=== PATIENT | male | born 1990 | race Caucasian/White ===

== ENCOUNTER 2020-07-22 16:13 | Emergency (ER) | payer SELFPAY ==
[2020-07-22] MEDS ORDERED: Metoclopramide 10 MG/2 ML SDV IVPUSH ONE (17:29)
[2020-07-22] MEDS ORDERED: Sodium Chloride 0.9% 1,000 ML IV ONE ×2 (17:29→21:21)
[2020-07-22] MEDS ORDERED: Sodium Chloride 0.9% 10 ML Syringe FLUSH PRN ×2 (17:29)
[2020-07-22] MEDS ORDERED: LORazepam 2 MG/ML SDV IVPUSH ONE ×2 (17:29→20:46)
--- NOTE | 2020-07-22 17:38 | EDM.PDOC ---
ED HPI GENERAL MEDICAL PROBLEM - General Chief Complaint: Drug or Alcohol Abuse Stated Complaint: ALCOHOL AND SUBOXONE WITHDRAWAL WITH VOMITING Time Seen by Provider: 07/22/20 17:20 Source of Information: Reports: Patient, RN Notes Reviewed History Limitations: Reports: No Limitations - History of Present Illness INITIAL COMMENTS - FREE TEXT/NARRATIVE: Patient is a 29-year-old male who presents to the ED for evaluation of his alcohol withdrawal and Suboxone withdrawal. The patient notes that he used to be homeless, and transient, but is currently living with his brother in [place]. Patient states that he is withdrawing from alcohol, his last intake was around 5 or 6 PM last night, he states that he started vomiting this morning and tried to drink alcohol to quell the withdrawal symptoms, but states he just keeps vomiting this back up. He has enjoyed periods of sobriety, and decided this morning that he wanted to quit drinking alcohol. He also states that he has been on Suboxone x 1 month, and is currently trying to wean himself off of this as he does not have a provider to prescribe this in the area. He has been on and off Suboxone in the past. 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 He states he is startling easily at this time. He has a recent history of methamphetamine use and marijuana use. Patient states he has chills but no fever. He is having abdomen pain, vomiting and nausea, states that his throat hurts due to the vomiting, and he has been having the dry heaving as well along with abdomen cramps. He is having some [id number] sensations in his bilateral arms and legs. He notes that he does have a history of hep C, and has not been treated as he moved before it could get treated. Abdomen Pain Score (Numeric/FACES): 8 - Related Data Allergies Allergy/AdvReac Type Severity Reaction Status Date / Time No Known Allergies Allergy Verified 07/22/20 16:34 Home Meds: Home Meds Buprenorphine HCl/Naloxone HCl [Suboxone 4 mg-1 mg Sl Film] 8 mg PO DAILY 07/22/20 [History] Folic Acid 1 mg PO DAILY 07/22/20 [History] QUEtiapine [SEROquel] 50 mg PO DAILY 07/22/20 [History] QUEtiapine [SEROquel] 200 mg PO BEDTIME 07/22/20 [History] Past Medical History Psychiatric History: Reports: Addiction, Anxiety, Dementia, Hallucinations - Infectious Disease History Infectious Disease History: Reports: Hepatitis C Social & Family History - Tobacco Use Tobacco Use Status *Q: Current Every Day Tobacco User Years of Tobacco use: 15 Packs/Tins Daily: 0.5 - Caffeine Use Caffeine Use: Reports: None - Alcohol Use Alcohol Use History: Yes Days Per Week of Alcohol Use: 7 Days Per Week of Alcohol Use Comment: fifth to a 1/2 gallon of whiskey daily Date of Last Drink: 07/21/20 Time of Last Drink: 17:30 Alcohol Use in Last Twelve Months: Yes Alcohol Use Frequency: Daily - Recreational Drug Use Recreational Drug Use: Yes Drug Use in Last 12 Months: Yes Recreational Drug Type: Reports: Heroin, Marijuana/Hashish, Methamphetamine Recreational Drug Route: Reports: Intravenous (heroin) ED ROS GENERAL - Review of Systems Review Of Systems: Comprehensive ROS is negative, except as noted in HPI. ED EXAM, GENERAL - Physical Exam Exam: See Below Exam Limited By: No Limitations General Appearance: Alert, WD/WN, No Apparent Distress, Anxious (pt does seem to startle easy but answers questions calmly and appropriately) Eye Exam: Bilateral Eye: EOMI, Normal Inspection, PERRL Throat/Mouth: Normal Inspection, Normal Lips, Normal Teeth, Normal Gums, Normal Oropharynx, Normal Voice, No Airway Compromise Head: Atraumatic, Normocephalic Neck: Normal Inspection Respiratory/Chest: No Respiratory Distress, Lungs Clear, Normal Breath Sounds, No Accessory Muscle Use, Chest Non-Tender Cardiovascular: Normal Peripheral Pulses, Regular Rate, Rhythm, No Murmur Peripheral Pulses: 2+: Radial (L), Radial (R) GI/Abdominal: Normal Bowel Sounds, Soft, No Distention, No Mass, Tender (epigastirum mainly) Extremities: Normal Inspection, Normal Capillary Refill Neurological: Alert, Oriented, Normal Cognition, No Motor/Sensory Deficits Psychiatric: Normal Affect, Normal Mood, Anxious (slightly anxious and startle easy) Skin Exam: Warm, Dry, Intact, Normal Color, No Rash Course - Vital Signs Last Recorded V/S: Last Vital Signs Temp 97.4 F 07/22/20 16:32 Pulse 98 07/22/20 16:32 Resp 20 07/22/20 16:32 BP 125/78 07/22/20 16:32 Pulse Ox 95 07/22/20 16:32 - Orders/Labs/Meds Orders: Active Orders 24 hr Category Date Time Status Peripheral IV Care [RC] . DIRECTED Care 07/22/20 17:30 Ordered Peripheral IV Care [RC] . DIRECTED Care 07/22/20 17:30 Ordered Sodium Chloride 0.9% [Normal Saline] 1,000 ml Med 07/22/20 21:21 Ordered IV ONETIME Sodium Chloride 0.9% [Saline Flush] Med 07/22/20 17:29 Active 10 ml FLUSH ASDIRECTED PRN Sodium Chloride 0.9% [Saline Flush] Med 07/22/20 17:29 Active 10 ml FLUSH ASDIRECTED PRN Peripheral IV Insertion Adult [OM.PC] Stat Oth 07/22/20 17:30 Ordered Medication Orders Sodium Chloride (Normal Saline) 1,000 mls @ 100 mls/hr IV ONETIME ONE Stop: 07/23/20 07:20 Last Admin: 07/22/20 21:56 Dose: 100 mls/hr Documented by: JAMISON Sodium Chloride (Saline Flush) 10 ml FLUSH ASDIRECTED PRN PRN Reason: Keep Vein Open Last Admin: 07/22/20 18:10 Dose: 10 ml Documented by: GRACY Sodium Chloride (Saline Flush) 10 ml FLUSH ASDIRECTED PRN PRN Reason: Keep Vein Open Last Admin: 07/22/20 19:27 Dose: 10 ml Documented by: [email or web address] Labs: Laboratory Tests 07/22/20 07/22/20 07/22/20 Range/Units 18:10 18:10 18:10 WBC 10.10 H (4.23-9.07) K/mm3 RBC 4.97 (4.63-6.08) M/mm3 Hgb 14.9 (13.7-17.5) gm/dl Hct 43.9 (40.1-51.0) % MCV 88.3 (79.0-92.2) fl MCH 30.0 (25.7-32.2) pg MCHC 33.9 (32.2-35.5) g/dl RDW Std Deviation 42.7 (35.1-43.9) fL Plt Count 469 H (163-337) K/mm3 MPV 9.4 (9.4-12.3) fl Neut % (Auto) 60.7 (34.0-67.9) % Lymph % (Auto) 28.8 (21.8-53.1) % [place] % (Auto) 9.3 (5.3-12.2) % Eos % (Auto) 0.3 L (0.8-7.0) Baso % (Auto) 0.4 (0.1-1.2) % Neut # (Auto) 6.13 H (1.78-5.38) K/mm3 Lymph # (Auto) 2.91 (1.32-3.57) K/mm3 [place] # (Auto) 0.94 H (0.30-0.82) K/mm3 Eos # (Auto) 0.03 L (0.04-0.54) K/mm3 Baso # (Auto) 0.04 (0.01-0.08) K/mm3 PT 11.4 (9.7-11.7) SECONDS INR 1.07 Sodium 136 (136-145) mEq/L Potassium 4.0 (3.5-5.1) mEq/L Chloride 97 L (98-107) mEq/L Carbon Dioxide 25 (21-32) mEq/L Anion Gap 18.0 H (5-15) BUN 15 (7-18) mg/dL Creatinine 1.1 (0.7-1.3) mg/dL Est Cr Clr Drug Dosing 110.72 mL/min Estimated GFR (MDRD) > 60 (>60) mL/min BUN/Creatinine Ratio 13.6 L (14-18) Glucose 84 (74-106) mg/dL Calcium 9.3 (8.5-10.1) mg/dL Magnesium 1.7 L (1.8-2.4) mg/dl Total Bilirubin 0.7 (0.2-1.0) mg/dL AST 37 (15-37) U/L ALT 41 (16-63) U/L Alkaline Phosphatase 84 (46-116) U/L Total Protein 8.5 H (6.4-8.2) g/dl Albumin 3.9 (3.4-5.0) g/dl Globulin 4.6 gm/dL Albumin/Globulin Ratio 0.9 L (1-2) Lipase 47 L (73-393) U/L Ethyl Alcohol 0.00 (0.00) gm% SARS-CoV-2 RNA (LISA) (NEGATIVE) 07/22/20 Range/Units 21:08 WBC (4.23-9.07) K/mm3 RBC (4.63-6.08) M/mm3 Hgb (13.7-17.5) gm/dl Hct (40.1-51.0) % MCV (79.0-92.2) fl MCH (25.7-32.2) pg MCHC (32.2-35.5) g/dl RDW Std Deviation (35.1-43.9) fL Plt Count (163-337) K/mm3 MPV (9.4-12.3) fl Neut % (Auto) (34.0-67.9) % Lymph % (Auto) (21.8-53.1) % [place] % (Auto) (5.3-12.2) % Eos % (Auto) (0.8-7.0) Baso % (Auto) (0.1-1.2) % Neut # (Auto) (1.78-5.38) K/mm3 Lymph # (Auto) (1.32-3.57) K/mm3 [place] # (Auto) (0.30-0.82) K/mm3 Eos # (Auto) (0.04-0.54) K/mm3 Baso # (Auto) (0.01-0.08) K/mm3 PT (9.7-11.7) SECONDS INR Sodium (136-145) mEq/L Potassium (3.5-5.1) mEq/L Chloride (98-107) mEq/L Carbon Dioxide (21-32) mEq/L Anion Gap (5-15) BUN (7-18) mg/dL Creatinine (0.7-1.3) mg/dL Est Cr Clr Drug Dosing mL/min Estimated GFR (MDRD) (>60) mL/min BUN/Creatinine Ratio (14-18) Glucose (74-106) mg/dL Calcium (8.5-10.1) mg/dL Magnesium (1.8-2.4) mg/dl Total Bilirubin (0.2-1.0) mg/dL AST (15-37) U/L ALT (16-63) U/L Alkaline Phosphatase (46-116) U/L Total Protein (6.4-8.2) g/dl Albumin (3.4-5.0) g/dl Globulin gm/dL Albumin/Globulin Ratio (1-2) Lipase (73-393) U/L Ethyl Alcohol (0.00) gm% SARS-CoV-2 RNA (LISA) Negative (NEGATIVE) Meds: Medications Generic Name Dose Route Start Last Admin Trade Name Freq PRN Reason Stop Dose Admin Sodium Chloride 1,000 mls @ 100 mls/hr 07/22/20 21:21 07/22/20 21:56 Normal Saline IV 07/23/20 07:20 100 mls/hr ONETIME ONE Administration Sodium Chloride 10 ml 07/22/20 17:29 07/22/20 18:10 Saline Flush FLUSH 10 ml ASDIRECTED PRN Administration Keep Vein Open Sodium Chloride 10 ml 07/22/20 17:29 07/22/20 19:27 Saline Flush FLUSH 10 ml ASDIRECTED PRN Administration Keep Vein Open Discontinued Medications Generic Name Dose Route Start Last Admin Trade Name Freq PRN Reason Stop Dose Admin Al Hydroxide/Mg Hydroxide 30 0 ml 07/22/20 18:18 07/22/20 18:27 ml/ Lidocaine HCl 15 ml PO 07/22/20 18:19 45 ml ONETIME ONE Administration Sodium Chloride 1,000 mls @ 999 mls/hr 07/22/20 17:29 07/22/20 18:15 Normal Saline IV 07/22/20 18:29 999 mls/hr ONETIME ONE Administration Ketorolac Tromethamine 30 mg 07/22/20 22:52 Toradol IVPUSH 07/22/20 22:53 ONETIME ONE Lorazepam 1 mg 07/22/20 17:29 07/22/20 18:11 Ativan IVPUSH 07/22/20 17:30 1 mg ONETIME ONE Administration Lorazepam 1 mg 07/22/20 20:46 07/22/20 21:12 Ativan IVPUSH 07/22/20 20:47 1 mg ONETIME ONE Administration Metoclopramide HCl 10 mg 07/22/20 17:29 07/22/20 18:13 Reglan IVPUSH 07/22/20 17:30 10 mg ONETIME ONE Administration Ondansetron HCl 4 mg 07/22/20 22:51 Zofran IVPUSH 07/22/20 22:52 ONETIME ONE - Re-Assessments/Exams Free Text/Narrative Re-Assessment/Exam: 07/22/20 17:39 Patient presents to the ED for evaluation of his withdrawal symptoms. Have ordered basic labs for evaluation, some IV fluids and medications. The patient states his ultimate goal is to get symptomatic relief, and try to detox at home by himself. This would be a guarded consideration due to him stating he had detox seizures in the past. I do believe that he would benefit from a more supervised detox at this time. 07/22/20 18:55 I did call [facility] for possible placement in [facility] bed, and none are available. Patient's labs all seem to be within normal limits at this time, lipase is not elevated. Blood alcohol is 0.00 07/22/20 20:24 I did re-interview the patient with Dr. Contreras in the room, the patient does have a history of Suboxone use x1 month, he was prescribed this in [place], he has a history of IV heroin use, he states his last use was roughly 1 year ago. He also stopped attending 1 year ago. He has a history of multiple inpatient detox programs, his last one being in October 2018 that lasted about 30 days. Notes that he does drink about 1/5 to half gallon of whiskey daily, and his last intake of this amount of alcohol was yesterday, but he ceased use at [address] Contreras does believe he is at mildly elevated risk for detox symptoms, but is confident as his age is under 35, and he is not showing major detox related symptoms at this visit, that he will likely do okay at home with a few tablets of Ativan and some Zofran and close follow-up with [facility] on Friday. I did talk with Dr. Nunez our hospitalist, and he states that he does not have an ICU bed at this time to admit the patient for alcohol detox. 07/22/20 20:47 I was in contact with [facility] in [place], and Dr. Pickering tentatively accept the patient for transfer for alcohol detox, pending a negative COVID swab. I have ordered the COVID swab to be done at this time. 07/22/20 22:53 The patient's COVID test has come back negative. The patient was having a headache, and some more nausea, I did order 4 mg Zofran, 30 mg Toradol, and we will dispatched ambulance for transfer to [facility] Departure - Departure Time of Disposition: 22:05 Disposition: DC/Tfer to Acute Hospital 02 Condition: Good Clinical Impression: Alcohol withdrawal syndrome Qualifiers: Complication of substance-induced condition: with perceptual disturbance Qualif ied Code(s): F10.232 - Alcohol dependence with withdrawal with perceptual disturbance - Discharge Information *PRESCRIPTION DRUG MONITORING PROGRAM REVIEWED*: No *COPY OF PRESCRIPTION DRUG MONITORING REPORT IN PATIENT SUMMER: No Referrals: PCP,None [Primary Care Provider] - Forms: ED Department Discharge Sepsis Event Note (ED) - Evaluation Sepsis Screening Result: No Definite Risk - Focused Exam Vital Signs: Vital Signs Temp Pulse Resp BP Pulse Ox 07/22/20 16:32 97.4 F 98 20 125/78 95 - My Orders Last 24 Hours: My Active Orders 07/22/20 17:29 Sodium Chloride 0.9% [Saline Flush] 10 ml FLUSH ASDIRECTED PRN Sodium Chloride 0.9% [Saline Flush] 10 ml FLUSH ASDIRECTED PRN 07/22/20 17:30 Peripheral IV Care [RC] . DIRECTED Peripheral IV Care [RC] . DIRECTED Peripheral IV Insertion Adult [OM.PC] Stat 07/22/20 21:21 Sodium Chloride 0.9% [Normal Saline] 1,000 ml IV ONETIME - Assessment/Plan Last 24 Hours: My Active Orders 07/22/20 17:29 Sodium Chloride 0.9% [Saline Flush] 10 ml FLUSH ASDIRECTED PRN Sodium Chloride 0.9% [Saline Flush] 10 ml FLUSH ASDIRECTED PRN 07/22/20 17:30 Peripheral IV Care [RC] . DIRECTED Peripheral IV Care [RC] . DIRECTED Peripheral IV Insertion Adult [OM.PC] Stat 07/22/20 21:21 Sodium Chloride 0.9% [Normal Saline] 1,000 ml IV ONETIME
[2020-07-22] MEDS ORDERED: Alum Hydrox/Mag Hydrox/Simeth 30 ML, Lidocaine 2% 15 ML PO ONE ×2 (18:18)
[2020-07-22] MEDS ORDERED: Ondansetron 4 MG/2 ML SDV IVPUSH ONE (22:51)
[2020-07-22] MEDS ORDERED: Ketorolac 30 MG/ML SDV IVPUSH ONE (22:52)
[2020-07-22] MEDS ORDERED: LORazepam 2 MG/ML SDV IVPUSH STA (23:15)
== END 2020-07-22 23:27 ==
LOC: JD.ED 16:13
DX: F10.232 Alcohol dependence with withdrawal with perceptual disturbance (principal); F41.9 Anxiety disorder, unspecified; F17.210 Nicotine dependence, cigarettes, uncomplicated; Z20.828 Contact with and (suspected) exposure to other viral communicable diseases
CPT/HCPCS: 36415; 80053; 80307; 83690; 83735; 85025; 85610; 87635; 96374; 96375; 96376; 99285; A9270; J1885; J2060; J2405; J2765; J7030; U0002

== ENCOUNTER 2021-01-10 19:19 | Emergency (ER) | payer MEDICAID, OTHER ==
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
[2021-01-11] MEDS ORDERED: Acetaminophen/HYDROcodone 325-5 MG Tab PO ONE (02:40)
[2021-01-11] MEDS ORDERED: Clindamycin HCl 150 MG Cap PO ONE (05:09)
[2021-01-11] MEDS ORDERED: LORazepam 1 MG Tab PO ONE (05:09)
--- NOTE | 2021-01-11 08:54 | CT ---
Head CT Technique: Multiple axial sections through the brain were obtained. Intravenous contrast was not utilized. Reconstructed coronal and sagittal images were obtained. Comparison: No prior intracranial imaging is available. Findings: Ventricles along with basal cisterns and sulci over the convexities are within normal limits for the patient's age. No abnormal parenchymal densities are seen. No evidence of intracranial hemorrhage. No midline shift or mass-effect is appreciated. Bone window settings were reviewed which show no discrete calvarial abnormality. Visualized paranasal sinuses and mastoid sinuses show nothing acute. Impression: 1. Nothing acute is seen on noncontrast head CT exam. Diagnostic code #1 I agree with preliminary report from [facility], finalized on 01/11/21, 3:28 AM CDT
--- NOTE | 2021-01-11 08:54 | CT ---
CT facial bones Technique: Multiple axial sections were obtained through the facial bone structures. Reconstructed coronal and sagittal images were obtained. Comparison: No prior study is available. Findings: Fracture is noted within the angle of the mandible on the left side. No significant displacement is seen. Fracture extends along a portion of the posterior molar. No additional mandibular fracture is definitely seen on this study. Scattered dental caries are seen. Fracture is seen at the base of the nasal bone with slight displacement. Age of this is indeterminate. Please correlate age with the patient's symptoms. Visualized paranasal sinuses are clear. No additional facial bone abnormality is appreciated. Mastoid sinuses are clear. Impression: 1. Nondisplaced fracture within the left side of the mandible at the angle which extends into the posterior molar. 2. Slightly comminuted and mildly displaced nasal bone fracture. This most likely is old but please correlate with the patient's symptoms. 3. Multiple dental caries. Diagnostic code #5 I agree with preliminary report from [facility], finalized on 01/11/21, 3:27 AM CDT
== END 2021-01-11 05:35 | disposition home or self-care (01) ==
LOC: JD.ED 19:19
DX: S02.652A Fracture of angle of left mandible, initial encounter for closed fracture (principal); Z72.0 Tobacco use; Z79.899 Other long term (current) drug therapy; Y04.0XXA Assault by unarmed brawl or fight, initial encounter
CPT/HCPCS: 70450; 70486; 99284; A9270

== ENCOUNTER 2021-01-14 17:56 | Emergency (ER) | payer MEDICAID ==
[2021-01-14] MEDS ORDERED: Sodium Chloride 0.9% 1,000 ML IV ONE ×2 (18:18→20:10)
[2021-01-14] MEDS ORDERED: LORazepam 2 MG/ML SDV IVPUSH ONE (18:18)
[2021-01-14] MEDS ORDERED: Thiamine 100 MG Tab PO ONE (18:18)
[2021-01-14] MEDS ORDERED: Folic Acid 1 MG Tab PO ONE (18:18)
[2021-01-14] MEDS ORDERED: Sodium Chloride 0.9% 10 ML Syringe FLUSH PRN (18:18)
[2021-01-14] MEDS ORDERED: Haloperidol Lactate 5 MG/ML SDV IVPUSH ONE (18:40)
[2021-01-14] MEDS ORDERED: HYDROmorphone 0.5 MG/0.5 ML Syringe IVPUSH ONE (18:41)
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
[2021-01-14 19:55] LABS: ACETAMINOPHEN 0 ug/mL (10-30)
[2021-01-14] MEDS ORDERED: Potassium Chloride 20 MEQ Tab.ER PO ONE (20:01)
== END 2021-01-14 20:50 ==
LOC: JD.ED 17:56
DX: R45.851 Suicidal ideations (principal); F31.5 Bipolar disorder, current episode depressed, severe, with psychotic features; F10.10 Alcohol abuse, uncomplicated; Y90.0 Blood alcohol level of less than 20 mg/100 ml; Z72.0 Tobacco use; Z79.899 Other long term (current) drug therapy; Z20.822 Contact with and (suspected) exposure to COVID-19
CPT/HCPCS: 36415; 80053; 80143; 80179; 80307; 83735; 84443; 85007; 85027; 85610; 87635; 96374; 96375; 99285; A9270; J1170; J1630; J2060; J7030; U0002

== ENCOUNTER 2021-01-25 03:15 | Emergency (ER) | payer OTHER ==
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
== END 2021-01-25 04:14 ==
LOC: JD.ED 03:15
DX: F10.239 Alcohol dependence with withdrawal, unspecified (principal); Z72.0 Tobacco use
CPT/HCPCS: 99283; 99284

== ENCOUNTER 2021-01-25 17:29 | Emergency (ER) | payer MEDICAID ==
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
== END 2021-01-25 19:59 ==
LOC: JD.ED 17:29
DX: Z76.5 Malingerer [conscious simulation] (principal); Z72.0 Tobacco use; Z79.899 Other long term (current) drug therapy
CPT/HCPCS: 36415; 80053; 80307; 83735; 85025; 99285

== ENCOUNTER 2021-02-13 07:13 | Emergency (ER) | payer MEDICAID ==
--- NOTE | 2021-02-13 07:40 | EDM.PDOCBH ---
ED HPI GENERAL MEDICAL PROBLEM - General Chief Complaint: Behavioral/Psych Stated Complaint: MENTAL EVAL Time Seen by Provider: 02/13/21 07:40 Source of Information: Reports: Patient History Limitations: Reports: No Limitations - History of Present Illness INITIAL COMMENTS - FREE TEXT/NARRATIVE: 30-year-old male who is a known alcoholic with bipolar affective disorder order with psychoses presents once again to the ED. He states he is still drinking whiskey up to a gallon per day. Over the last day and a half he is only had 2/5. He admits that there is some auditory hallucinations mostly telling him that he is bad and that he should kill himself. Patient went off his medication back in October. He was on 50 mg of Seroquel in the morning and 200 at bedtime. He had been doing well on that medication. He is no longer ibuprofen on either. States he did eat yesterday afternoon and stay down. Stools tend to be on the loose side. No recent falls or injuries. He has had increased agitation lately with multiple superficial cuts to the volar aspects of both forearms particular than the left. Nothing that would require sutures. There is a deeper wound on the extensor surface of the mid right forearm that is 3 days old. He lacerated his forearms with a knife. Onset: Gradual (Has have a being increasing suicidal ideation and auditory hallucinations for the last 3 to 5 days.) Onset Date: 02/08/21 Duration: Day(s):, Getting Worse Location: Reports: Upper Extremity, Left, Upper Extremity, Right (Laceration to the volar aspect of left and right forearms with a knife yesterday.) Quality: Reports: Other (Auditory hallucinations. Chronic alcoholism.) Severity: Moderate Improves with: Reports: None Worsens with: Reports: None Context: Reports: Other (Has gone off his medications in October of this year.). Denies: Activity, Exercise, Lifting, Sick Contact, Trauma Associated Symptoms: Reports: Malaise. 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: Other (see below) (None.) - Related Data Allergies Allergy/AdvReac Type Severity Reaction Status Date / Time No Known Allergies Allergy Verified 02/13/21 07:33 Home Meds: Home Meds Buprenorphine HCl/Naloxone HCl [Suboxone 4 mg-1 mg Sl Film] 8 mg PO DAILY 07/22/20 [History] Folic Acid 1 mg PO DAILY 07/22/20 [History] QUEtiapine [SEROquel] 50 mg PO DAILY 07/22/20 [History] QUEtiapine [SEROquel] 200 mg PO BEDTIME 07/22/20 [History] Acetaminophen/HYDROcodone [Carmi 325-5 MG] 1 tab PO Q6H PRN #15 tablet 01/11/21 [Rx] Clindamycin HCl 300 mg PO TID #30 capsule 01/11/21 [Rx] LORazepam [Ativan] 1 mg PO TID PRN #9 tab 01/11/21 [Rx] Past Medical History - Past Health History Medical/Surgical History: Denies Medical/Surgical History Psychiatric History: Reports: Addiction (alcohol, opiates, methamphetamine), Anxiety (untreated), Bipolar (untreated), Depression (untreated), Psych Hospitalization(s), Suicide Attempt - Infectious Disease History Infectious Disease History: Reports: Hepatitis C, MRSA Social & Family History - Family History Family Medical History: No Pertinent Family History - Caffeine Use Caffeine Use: Reports: Energy Drinks, Soda - Living Situation & Occupation Living situation: Reports: Single, Alone Occupation: Unemployed ED ROS GENERAL - Review of Systems Review Of Systems: See Below Constitutional: Reports: Fatigue, Decreased Appetite (Rarely eats solid food.), Weight Loss. Denies: Fever, Chills, Malaise, Weakness HEENT: Reports: No Symptoms Respiratory: Reports: Shortness of Breath, Wheezing, Cough, Sputum (Smokes a pack to pack and half per day.). Denies: Pleuritic Chest Pain, Hemoptysis ( Brownish sputum) Cardiovascular: Denies: Chest Pain, Blood Pressure Problem, Claudication, Dyspnea on Exertion, Edema, Lightheadedness, Orthopnea, Palpitations Endocrine: Reports: Fatigue GI/Abdominal: Reports: Diarrhea (Minimally formed), Nausea ( and sometimes diarrhea.), Vomiting ( Intermittent nausea occasional vomiting without hematemesis.) : Reports: Frequency Musculoskeletal: Reports: No Symptoms Skin: Reports: Other (Self-inflicted multiple superficial lacerations to the volar aspect of both forearms worse on the left than on the right) Neurological: Reports: No Symptoms ( he did this yesterday.). Denies: Confusion, Dizziness, Headache, Numbness, Paresthesia, Pre-Existing Deficit, Seizure, Syncope, Tingling, Tremors, Trouble Speaking, Difficulty Walking, Weakness, Change in Speech Psychiatric: Reports: Anxiety, Depression, Hallucinations (Auditory hallucinations telling him to kill himself and derogatory). Denies: Homicidal Ideation ( mean things.), Mood Lability, Suicidal Ideation Hematologic/Lymphatic: Reports: No Symptoms Immunologic: Reports: No Symptoms ED EXAM, BEHAVIORAL HEALTH - Physical Exam Exam: See Below Exam Limited By: No Limitations General Appearance: Alert, WD/WN, No Apparent Distress, Other (Very uncapped. Temperature is 36.4 heart rate 134 and sinus respiratory is 20 with O2 sats of 98% room air BP 142/72.) Eye Exam: Bilateral Eye: Normal Inspection (No scleral icterus or blepharal pallor.), PERRL Throat/Mouth: Other (Tongue is dry and coated. Oropharynx is diffusely erythematous from cigarette smoking.) Head: Atraumatic, Normocephalic, Other (No outward signs of head or facial trauma. States his fractured mandible is healing. Still has a tooth that needs to be removed from the fracture.) Neck: Normal Inspection ( Missed his appointment yesterday to get down to [place] to have this done.), Supple, Non-Tender, Full Range of Motion. No: Carotid Bruit, Lymphadenopathy (L), Lymphadenopathy (R), Thyromegaly Respiratory/Chest: Lungs Clear ( from being anxious.), Normal Breath Sounds, No Accessory Muscle Use, Respiratory Distress (Mild tachypnea mostly ) Cardiovascular: Normal Peripheral Pulses, Regular Rate, Rhythm, No Edema, No Gallop, No JVD, No Murmur, No Rub GI/Abdominal: Normal Bowel Sounds, Soft, Non-Tender, No Organomegaly, Pelvis Stable, Rebound, Other (No surgical scars.) Back Exam: Normal Inspection, Full Range of Motion. No: CVA Tenderness (L), CVA Tenderness (R) Extremities: Normal Range of Motion, Non-Tender, No Pedal Edema, Other (He has multiple fresh lacerations to the volar aspect of both forearms worse on the left than on the right. These were inflicted by a knife yesterday. He has healed superficial lacerations across the anterior aspect of both thighs again little worse on the left as compared to the right.) Neurological: Alert, Normal Mood/Affect, CN II-XII Intact, Normal Cognition, Normal Gait, Oriented x 3 Psychiatric: Alert, Normal Cognition, Oriented, Poor Eye Contact, Withdrawn, Auditory Hallucinations. No: Normal Affect (Flat affect), Normal Mood, Uncooperative, Flight of Ideas, Homicidal Thoughts, Phobic (Mildly withdrawn), Yazidism Delusions, Suicidal Plan, Suicidal Thoughts, Grandiose Thoughts, Pressured Speech, Paranoid Thoughts, Threatening Behavior, Other Skin Exam: Warm, Dry, Intact, Normal color, No rash #2 Interpretation EKG Date: 02/13/21 Time: 08:06 Rhythm: Other (Sinus tachycardia) Rate (Beats/Min): 116 [place]: Normal P-Wave: Enlarged (Left atrial hypertrophy pattern) QRS: Normal ST-T: Other (Diffuse early repolarization pattern) QT: Prolonged (QTC is mildly prolonged) EKG Interpretation Comments: Borderline ECG COURSE, BEHAVIORAL HEALTH COMP - Course Vital Signs: Last Vital Signs Temp 36.4 C 02/13/21 07:15 Pulse 134 H 02/13/21 07:15 Resp 20 02/13/21 07:15 BP 142/72 H 02/13/21 07:15 Pulse Ox 98 02/13/21 07:15 Orders, Labs, Meds: Active Orders 24 hr Category Date Time Status EKG Documentation Completion [RC] STAT Care 02/13/21 07:48 Active Suicide Precautions [RC] Q15M Care 02/13/21 08:00 Active Dextrose 5%-0.9% NaCl [Dextrose 5%-Normal Saline] 1,000 Med 02/13/21 07:45 Active ml IV ASDIRECTED Dextrose 5%-0.9% NaCl [Dextrose 5%-Normal Saline] 1,000 Med 02/13/21 11:00 Active ml IV ASDIRECTED Lactated Ringers [Ringers, Lactated] 1,000 ml Med 02/13/21 09:30 Active IV .BOLUS Magnesium Sulfate/Water [Magnesium Sulfate in Water 4 Med 02/13/21 10:15 Active GM/50 ML] 4 gm Premix Bag 1 bag IV ONETIME Medication Orders Dextrose/Sodium Chloride (Dextrose 5%-Normal Saline) 1,000 mls @ 999 mls/hr IV ASDIRECTED [facility] Last Infusion: 02/13/21 09:16 Dose: 999 mls/hr Documented by: Admin: 02/13/21 08:15 Dose: 999 mls/hr Documented by: GRACY Lactated Ringer's (Ringers, Lactated) 1,000 mls @ 999 mls/hr IV .BOLUS SHELBIE Last Admin: 02/13/21 09:38 Dose: 999 mls/hr Documented by: GRACY Magnesium Sulfate 4 gm/ Premix 50 mls @ 12.5 mls/hr IV ONETIME ONE Stop: 02/13/21 14:14 Last Admin: 02/13/21 10:41 Dose: 12.5 mls/hr Documented by: GRACY Dextrose/Sodium Chloride (Dextrose 5%-Normal Saline) 1,000 mls @ 500 mls/hr IV ASDIRECTED [facility] Last Admin: 02/13/21 10:55 Dose: 500 mls/hr Documented by: CARMEN Laboratory Tests 02/13/21 02/13/21 02/13/21 Range/Units 08:00 08:00 08:00 WBC 12.15 H (4.23-9.07) K/mm3 RBC 4.16 L (4.63-6.08) M/mm3 Hgb 12.9 L D (13.7-17.5) gm/dl Hct 37.6 L (40.1-51.0) % MCV 90.4 D (79.0-92.2) fl MCH 31.0 (25.7-32.2) pg MCHC 34.3 (32.2-35.5) g/dl RDW Std Deviation 44.4 H (35.1-43.9) fL Plt Count 259 (163-337) K/mm3 MPV 9.5 (9.4-12.3) fl Neut % (Auto) 81.1 H (34.0-67.9) % Lymph % (Auto) 8.6 L (21.8-53.1) % [place] % (Auto) 9.8 (5.3-12.2) % Eos % (Auto) 0 L (0.8-7.0) Baso % (Auto) 0.3 (0.1-1.2) % Neut # (Auto) 9.85 H (1.78-5.38) K/mm3 Lymph # (Auto) 1.05 L (1.32-3.57) K/mm3 [place] # (Auto) 1.19 H (0.30-0.82) K/mm3 Eos # (Auto) 0.00 L (0.04-0.54) K/mm3 Baso # (Auto) 0.04 (0.01-0.08) K/mm3 Manual Slide Review Abnormal smear PT 10.8 (9.7-12.0) SECONDS INR 1.01 APTT 25.4 (21.7-31.4) SECONDS Sodium 141 (136-145) mEq/L Potassium 3.4 L (3.5-5.1) mEq/L Chloride 101 (98-107) mEq/L Carbon Dioxide 20 L (21-32) mEq/L Anion Gap 23.4 H (5-15) BUN 14 (7-18) mg/dL Creatinine 0.9 (0.7-1.3) mg/dL Est Cr Clr Drug Dosing 130.15 mL/min Estimated GFR (MDRD) > 60 (>60) mL/min BUN/Creatinine Ratio 15.6 (14-18) Glucose 61 L (70-99) mg/dL Lactic Acid (0.4-2.0) mmol/L Calcium 8.1 L D (8.5-10.1) mg/dL Magnesium 1.1 L (1.8-2.4) mg/dL Total Bilirubin 0.5 (0.2-1.0) mg/dL AST 56 H (15-37) U/L ALT 33 (16-63) U/L Alkaline Phosphatase 69 (46-116) U/L CK-MB (CK-2) 9.4 H (0-3.6) ng/ml C-Reactive Protein 0.6 (<1.0) mg/dL Total Protein 7.3 (6.4-8.2) g/dl Albumin 3.7 (3.4-5.0) g/dl Globulin 3.6 gm/dL Albumin/Globulin Ratio 1.0 (1-2) TSH 3rd Generation (0.358-3.74) uIU/mL Urine Color (Yellow) Urine Appearance (Clear) Urine pH (5.0-8.0) Ur Specific [place] (1.005-1.030) Urine Protein (Negative) Urine Glucose (UA) (Negative) Urine Ketones (Negative) Urine Occult Blood (Negative) Urine Nitrite (Negative) Urine Bilirubin (Negative) Urine Urobilinogen (0.2-1.0) Ur Leukocyte Esterase (Negative) Urine Opiates Screen (GELGAJ=222) Ur Buprenorphine Scrn (CUTOFF=10) Ur Oxycodone Screen (NBP2SG=576) Urine Methadone Screen (RWF1DX=806) Ur Propoxyphene Screen (DXLZQG=395) Ur Barbiturates Screen (GHUTQW=714) Ur Tricyclics Screen (LUKHTW=110) Ur Phencyclidine Scrn (CUTOFF=25) Ur Amphetamine Screen (NTWHSA=567) U Methamphetamines Scrn (LYNULK=706) U Benzodiazepines Scrn (VGKTHH=972) U Cocaine Metab Screen (QJEIGS=599) U Marijuana (THC) Screen (CUTOFF=50) Ethyl Alcohol 0.02 (0.00) gm% SARS-CoV-2 RNA (LISA) (NEGATIVE) 02/13/21 02/13/21 02/13/21 Range/Units 08:00 08:00 09:05 WBC (4.23-9.07) K/mm3 RBC (4.63-6.08) M/mm3 Hgb (13.7-17.5) gm/dl Hct (40.1-51.0) % MCV (79.0-92.2) fl MCH (25.7-32.2) pg MCHC (32.2-35.5) g/dl RDW Std Deviation (35.1-43.9) fL Plt Count (163-337) K/mm3 MPV (9.4-12.3) fl Neut % (Auto) (34.0-67.9) % Lymph % (Auto) (21.8-53.1) % [place] % (Auto) (5.3-12.2) % Eos % (Auto) (0.8-7.0) Baso % (Auto) (0.1-1.2) % Neut # (Auto) (1.78-5.38) K/mm3 Lymph # (Auto) (1.32-3.57) K/mm3 [place] # (Auto) (0.30-0.82) K/mm3 Eos # (Auto) (0.04-0.54) K/mm3 Baso # (Auto) (0.01-0.08) K/mm3 Manual Slide Review PT (9.7-12.0) SECONDS INR APTT (21.7-31.4) SECONDS Sodium (136-145) mEq/L Potassium (3.5-5.1) mEq/L Chloride (98-107) mEq/L Carbon Dioxide (21-32) mEq/L Anion Gap (5-15) BUN (7-18) mg/dL Creatinine (0.7-1.3) mg/dL Est Cr Clr Drug Dosing mL/min Estimated GFR (MDRD) (>60) mL/min BUN/Creatinine Ratio (14-18) Glucose (70-99) mg/dL Lactic Acid 4.0 H* (0.4-2.0) mmol/L Calcium (8.5-10.1) mg/dL Magnesium (1.8-2.4) mg/dL Total Bilirubin (0.2-1.0) mg/dL AST (15-37) U/L ALT (16-63) U/L Alkaline Phosphatase (46-116) U/L CK-MB (CK-2) (0-3.6) ng/ml C-Reactive Protein (<1.0) mg/dL Total Protein (6.4-8.2) g/dl Albumin (3.4-5.0) g/dl Globulin gm/dL Albumin/Globulin Ratio (1-2) TSH 3rd Generation 1.109 (0.358-3.74) uIU/mL Urine Color (Yellow) Urine Appearance (Clear) Urine pH (5.0-8.0) Ur Specific [place] (1.005-1.030) Urine Protein (Negative) Urine Glucose (UA) (Negative) Urine Ketones (Negative) Urine Occult Blood (Negative) Urine Nitrite (Negative) Urine Bilirubin (Negative) Urine Urobilinogen (0.2-1.0) Ur Leukocyte Esterase (Negative) Urine Opiates Screen (RKKPKZ=778) Ur Buprenorphine Scrn (CUTOFF=10) Ur Oxycodone Screen (VSJ5LI=497) Urine Methadone Screen (SHO4AQ=453) Ur Propoxyphene Screen (EXYAGY=633) Ur Barbiturates Screen (GNDEXP=608) Ur Tricyclics Screen (OAOLFU=039) Ur Phencyclidine Scrn (CUTOFF=25) Ur Amphetamine Screen (DYAMGF=129) U Methamphetamines Scrn (XVYEBW=372) U Benzodiazepines Scrn (UKSPIH=968) U Cocaine Metab Screen (EJQGVT=876) U Marijuana (THC) Screen (CUTOFF=50) Ethyl Alcohol (0.00) gm% SARS-CoV-2 RNA (LISA) Negative (NEGATIVE) 02/13/21 02/13/21 02/13/21 Range/Units 10:35 10:35 11:05 WBC (4.23-9.07) K/mm3 RBC (4.63-6.08) M/mm3 Hgb (13.7-17.5) gm/dl Hct (40.1-51.0) % MCV (79.0-92.2) fl MCH (25.7-32.2) pg MCHC (32.2-35.5) g/dl RDW Std Deviation (35.1-43.9) fL Plt Count (163-337) K/mm3 MPV (9.4-12.3) fl Neut % (Auto) (34.0-67.9) % Lymph % (Auto) (21.8-53.1) % [place] % (Auto) (5.3-12.2) % Eos % (Auto) (0.8-7.0) Baso % (Auto) (0.1-1.2) % Neut # (Auto) (1.78-5.38) K/mm3 Lymph # (Auto) (1.32-3.57) K/mm3 [place] # (Auto) (0.30-0.82) K/mm3 Eos # (Auto) (0.04-0.54) K/mm3 Baso # (Auto) (0.01-0.08) K/mm3 Manual Slide Review PT (9.7-12.0) SECONDS INR APTT (21.7-31.4) SECONDS Sodium (136-145) mEq/L Potassium (3.5-5.1) mEq/L Chloride (98-107) mEq/L Carbon Dioxide (21-32) mEq/L Anion Gap (5-15) BUN (7-18) mg/dL Creatinine (0.7-1.3) mg/dL Est Cr Clr Drug Dosing mL/min Estimated GFR (MDRD) (>60) mL/min BUN/Creatinine Ratio (14-18) Glucose (70-99) mg/dL Lactic Acid 0.7 (0.4-2.0) mmol/L Calcium (8.5-10.1) mg/dL Magnesium (1.8-2.4) mg/dL Total Bilirubin (0.2-1.0) mg/dL AST (15-37) U/L ALT (16-63) U/L Alkaline Phosphatase (46-116) U/L CK-MB (CK-2) (0-3.6) ng/ml C-Reactive Protein (<1.0) mg/dL Total Protein (6.4-8.2) g/dl Albumin (3.4-5.0) g/dl Globulin gm/dL Albumin/Globulin Ratio (1-2) TSH 3rd Generation (0.358-3.74) uIU/mL Urine Color Yellow (Yellow) Urine Appearance Clear (Clear) Urine pH 6.0 (5.0-8.0) Ur Specific [place] 1.020 (1.005-1.030) Urine Protein Negative (Negative) Urine Glucose (UA) Negative (Negative) Urine Ketones 2+ H (Negative) Urine Occult Blood Negative (Negative) Urine Nitrite Negative (Negative) Urine Bilirubin Negative (Negative) Urine Urobilinogen 0.2 (0.2-1.0) Ur Leukocyte Esterase Negative (Negative) Urine Opiates Screen Negative (BIBDYH=702) Ur Buprenorphine Scrn Negative (CUTOFF=10) Ur Oxycodone Screen Negative (PXX5PD=381) Urine Methadone Screen Negative (WBA8HD=919) Ur Propoxyphene Screen Negative (XYHBYE=736) Ur Barbiturates Screen Negative (EPNNRK=593) Ur Tricyclics Screen Negative (BCCKWP=796) Ur Phencyclidine Scrn Negative (CUTOFF=25) Ur Amphetamine Screen Presumptive positive H (VRQRHO=554) U Methamphetamines Scrn Presumptive positive H (DWCUCK=431) U Benzodiazepines Scrn Negative (LSTLTL=146) U Cocaine Metab Screen Negative (XLFKUP=214) U Marijuana (THC) Screen Presumptive positive H (CUTOFF=50) Ethyl Alcohol (0.00) gm% SARS-CoV-2 RNA (LISA) (NEGATIVE) Medications Generic Name Dose Route Start Last Admin Trade Name Freq PRN Reason Stop Dose Admin Dextrose/Sodium Chloride 1,000 mls @ 999 mls/hr 02/13/21 07:45 02/13/21 09:16 Dextrose 5%-Normal Saline IV Infused ASDIRECTED SHELBIE Infusion Lactated Ringer's 1,000 mls @ 999 mls/hr 02/13/21 09:30 02/13/21 09:38 Ringers, Lactated IV 999 mls/hr .BOLUS SHELBIE Administration Magnesium Sulfate 4 gm/ Premix 50 mls @ 12.5 mls/hr 02/13/21 10:15 02/13/21 10:41 IV 02/13/21 14:14 12.5 mls/hr ONETIME ONE Administration Dextrose/Sodium Chloride 1,000 mls @ 500 mls/hr 02/13/21 11:00 02/13/21 10:55 Dextrose 5%-Normal Saline IV 500 mls/hr ASDIRECTED SHELBIE Administration Discontinued Medications Generic Name Dose Route Start Last Admin Trade Name Freq PRN Reason Stop Dose Admin Folic Acid 1 mg 02/13/21 08:03 02/13/21 08:23 Folic Acid 50 Mg/10 Ml Mdv IV 02/13/21 08:04 1 mg ONETIME ONE Administration Lorazepam 1 mg 02/13/21 07:46 02/13/21 08:10 Lorazepam 2 Mg/Ml Sdv IVPUSH 02/13/21 07:47 1 mg ONETIME ONE Administration Lorazepam 1 mg 02/13/21 11:47 02/13/21 11:52 Lorazepam 2 Mg/Ml Sdv IVPUSH 02/13/21 11:48 1 mg ONETIME ONE Administration Magnesium Oxide 400 mg 02/13/21 10:14 02/13/21 10:49 Magnesium Oxide 400 Mg Tab PO 02/13/21 10:15 400 mg ONETIME ONE Administration Quetiapine Fumarate 100 mg 02/13/21 07:45 02/13/21 08:22 Quetiapine 100 Mg Tab PO 02/13/21 07:46 100 mg NOW STA Administration Thiamine HCl 1 mg 02/13/21 07:47 02/13/21 08:12 Thiamine 200 Mg/2 Ml Mdv IVPUSH 02/13/21 07:48 1 mg ONETIME ONE Administration Re-Assessment/Re-Exam: White blood cell count is elevated at 12.15 with 81% neutrophils. Hemoglobin is 12.9 with hematocrit of 37.6 MCV is normal at 90.4. Platelet count 259,000. PT is 10.8 with an INR of 1.01 PTT is 25.4. Sodium 141 with potassium of 3.4 chloride 101 with a bicarb of 20 anion gap is elevated at 23.4 BUN is 14 with a creatinine of 0.9 and a GFR greater than 60. Glucose is low at 61. Lactic acid is elevated at 4.0. Calcium is 8.1 with a magnesium of 1.1. Bilirubin is 0.5 with an AST of 56 and an ALT of 33. Alkaline phosphatase is 69. CK-MB fraction is markedly elevated at 9.4. C-reactive protein is 0.6. Total protein 7.3 with an albumin fraction of 3.7 TSH is 1.109 blood alcohol is currently 0.02. Re-Assessment/Re-Exam Date: 02/13/21 (He has completed his first liter of D5 normal saline. Second liter will be Ringer's lactate at open to improve his lactic acidosis. Portable chest x-ray reveals heart size and mediastinum to be within normal limits for portable technique. Lungs are clear with no acute parenchymal changes. Bony structures show nothing acute.) Re-Assessment/Re-Exam Time: 10:05 (Urine drug screen is pending.) Medical Clearance: 02/13/21 10:20 I have spoken with --on-call psychiatrist at [facility] in [place] and he is excepted the patient in care. We will now start working on transport to that facility. In the interim he does have magnesium running intravenously therefore would be ideal to transport him per ground vehicle. He is a voluntary commitment to that institution. 02/13/21 10:51 patient has completed 2 L of crystalloid. The initial 1 was D5 normal saline the second liter was LR at open. He will now have D5 normal saline hung at 500 mils an hour. Urine has been obtained for urine drug culture. We are trying to arrange transport to [facility] at this time. 02/13/21 11:28 Patient will be transported to [facility] in [place] per killed their ambulance. His IV magnesium infusion will be discontinued before he is discharged from the department. I am going to give him Ativan 1 mg IV to help facilitate transport to that facility without any problems. Killed her ambulances asked that a deputy now accompany them to [place]. This will delay transport. Suggest magnesium supplementation with 600 mg of magnesium oxide once daily Discharge vs Psych Eval/Treatment:: 02/13/21 12:29 killed her ambulance and the deputy are now here to provide transport to [facility] Department of psychiatry. 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 A lactic acid level will be repeated prior to discharge from the department. He had magnesium running intravenously while in the ED but it will be discontinued prior to ambulance transfer port since they only have BLS availability and no prototype assembler electronics. Sepsis Event Note (ED) - Evaluation Sepsis Screening Result: No Definite Risk - Focused Exam Vital Signs: Vital Signs Temp Pulse Resp BP Pulse Ox 02/13/21 07:15 36.4 C 134 H 20 142/72 H 98 - My Orders Last 24 Hours: My Active Orders 02/13/21 07:45 Dextrose 5%-0.9% NaCl [Dextrose 5%-Normal Saline] 1,000 ml IV ASDIRECTED 02/13/21 07:48 EKG Documentation Completion [RC] STAT 02/13/21 08:00 Suicide Precautions [RC] Q15M 02/13/21 09:30 Lactated Ringers [Ringers, Lactated] 1,000 ml IV .BOLUS 02/13/21 10:15 Magnesium Sulfate/Water [Magnesium Sulfate in Water 4 GM/50 ML] 4 gm Premix Bag 1 bag IV ONETIME 02/13/21 11:00 Dextrose 5%-0.9% NaCl [Dextrose 5%-Normal Saline] 1,000 ml IV ASDIRECTED - Assessment/Plan Last 24 Hours: My Active Orders 02/13/21 07:45 Dextrose 5%-0.9% NaCl [Dextrose 5%-Normal Saline] 1,000 ml IV ASDIRECTED 02/13/21 07:48 EKG Documentation Completion [RC] STAT 02/13/21 08:00 Suicide Precautions [RC] Q15M 02/13/21 09:30 Lactated Ringers [Ringers, Lactated] 1,000 ml IV .BOLUS 02/13/21 10:15 Magnesium Sulfate/Water [Magnesium Sulfate in Water 4 GM/50 ML] 4 gm Premix Bag 1 bag IV ONETIME 02/13/21 11:00 Dextrose 5%-0.9% NaCl [Dextrose 5%-Normal Saline] 1,000 ml IV ASDIRECTED
[2021-02-13] MEDS ORDERED: QUEtiapine 100 MG Tab PO STA (07:45)
[2021-02-13] MEDS ORDERED: LORazepam 2 MG/ML SDV IVPUSH ONE ×2 (07:46→11:47)
[2021-02-13] MEDS ORDERED: Thiamine 200 MG/2 ML MDV IVPUSH ONE (07:47)
[2021-02-13] MEDS ORDERED: Folic Acid 50 MG/10 ML MDV IV ONE (08:03)
[2021-02-13] MEDS: Dextrose 5%-0.9% NaCl 1,000 ML IV SCH ×2 (08:15→10:53)
--- NOTE | 2021-02-13 09:05 | CR ---
Chest: Portable view of the chest was obtained. Comparison: No prior chest imaging is available. Heart size and mediastinum are within normal limits for portable technique. Lungs are clear with no acute parenchymal change. Bony structures show nothing acute. Impression: 1. Nothing acute is seen on portable chest x-ray. Diagnostic code #1
[2021-02-13] MEDS ORDERED: Lactated Ringers 1,000 ML IV SCH (09:30)
[2021-02-13] MEDS ORDERED: Magnesium Oxide 400 MG Tab PO ONE (10:14)
[2021-02-13] MEDS ORDERED: Magnesium Sulfate/Water 4 GM in Premix Bag 1 BAG IV ONE (10:15)
[2021-02-13] MEDS ORDERED: Dextrose 5%-0.9% NaCl 1,000 ML IV SCH (11:00)
== END 2021-02-13 12:35 ==
LOC: JD.ED 07:13
DX: F33.9 Major depressive disorder, recurrent, unspecified (principal); S51.812A Laceration without foreign body of left forearm, initial encounter; S51.811A Laceration without foreign body of right forearm, initial encounter; E83.42 Hypomagnesemia; E87.2 Acidosis; F41.9 Anxiety disorder, unspecified; R44.0 Auditory hallucinations; Z20.822 Contact with and (suspected) exposure to COVID-19; Z79.899 Other long term (current) drug therapy; X78.1XXA Intentional self-harm by knife, initial encounter
CPT/HCPCS: 36415; 71045; 80053; 80306; 80307; 81003; 82553; 83605; 83735; 84443; 85025; 85610; 85730; 86140; 87635; 93005; 96365; 96366; 96375; 96376; 99285; A9270; J2060; J3411; J3475; J7042; J7120; 93010; U0002